=== PATIENT | male | born 1970 | race Caucasian/White ===

== ENCOUNTER → 2017-06-21 | Outpatient (CLI) | payer OTHER ==
--- NOTE | 2017-06-21 12:25 | DIAGNOSTIC IMAGING REPORT ---
PET/CT SKULL-THIGH CLINICAL HISTORY: 46 years-old Male with LYMPHOMA. There is a follow-up study for subsequent treatment strategy. COMPARISON: PET CT 05/15/2013 TECHNIQUE: The patient was injected with 14.79 mCi of F-18 fluorodeoxyglucose (FDG) and an emission scan was performed from the skull vertex to the toes. Noncontrast CT was performed for attenuation correction and anatomic localization. The blood glucose level was 97 mg/dl. FINDINGS: HEAD AND NECK: Enlarged thyroid is again noted with the right lobe larger than the left. This demonstrates slightly increased FDG activity with SUV max of 2.5, nonspecific. Additionally, there is a focal area of increased FDG activity with SUV max of 3.0 within the inferomedial aspect of the right thyroid which may correlate with a focal nodule, not well seen on the CT component. No FDG adenopathy is seen about the neck. CHEST: There is a physiologic distribution of activity, with no hypermetabolic mediastinal, hilar or pulmonary foci. ABDOMEN AND PELVIS: There is a physiologic distribution of activity within the liver, spleen, adrenal glands, gastrointestinal and urinary tracts, with no hypermetabolic foci. MUSCULOSKELETAL SYSTEM AND EXTREMITIES: Slightly increased radiotracer uptake about the right shoulder is likely secondary to recent activity. Otherwise, no hypermetabolic foci. ADDITIONAL CT FINDINGS: There is atherosclerosis of the aorta. Coronary arterial calcifications are noted. There are calcified prevascular and right paratracheal lymph nodes noted. Lung amezquita are clear with the exception of a 4 mm noncalcified pulmonary nodule of the lateral right lung base which is below resolution in size for PET and demonstrates no focal FDG uptake, unchanged from 05/15/2013 compatible with benign etiology. No splenomegaly. Cyst of the medial interpolar right kidney is seen, 2.6 cm. The appendix is normal. IMPRESSION: 1. Stable exam without evidence of pathologic FDG juany activity. No splenomegaly. 2. Enlarged thyroid suggest multinodular goiter with focally increased radiotracer uptake involving the inferomedial right thyroid lobe. This can be correlated with thyroid ultrasound. 3. Unchanged 4 mm noncalcified pulmonary nodule of the lateral right lung base, stable from 05/15/2013 compatible with benign etiology. The above report was generated using voice recognition software. It may contain grammatical, syntax or spelling errors. Electronically signed by: Romario Mattson M.D. 06/21/2017 12:23 PM Dictated Date/Time: 06/21/2017 11:52 AM
== END ==
LOC: C.PET 08:57
PROVIDERS: ATTEND Internal Medicine
DX: C85.90 Non-Hodgkin lymphoma, unspecified, unspecified site (principal)